=== PATIENT | female | born 1950 | race Caucasian/White ===

== ENCOUNTER 2016-06-29 16:25 | Outpatient (CLI) | payer OTHER | END 2016-06-29 16:26 | disposition EMS.NT | DX: Z04.1 Encounter for examination and observation following transport accident (principal); V49.40XA Driver injured in collision with unspecified motor vehicles in traffic accident, initial encounter; Y92.413 State road as the place of occurrence of the external cause ==

== ENCOUNTER 2016-06-29 18:35 | Outpatient (CLI) | payer OTHER | END 2016-06-29 18:36 | disposition home or self-care (01) | DX: Z01.89 Encounter for other specified special examinations (principal) ==

== ENCOUNTER 2016-08-03 11:10 | Outpatient (CLI) | payer OTHER | END 2016-08-03 11:11 | disposition short-term general hospital (02) | LOC: EMS 11:10 | PROVIDERS: ATTEND Surgery | DX: R11.2 Nausea with vomiting, unspecified (principal) | CPT/HCPCS: A0425; A0429 ==

== ENCOUNTER 2016-08-17 16:10 | Outpatient (CLI) | payer OTHER | END 2016-08-17 16:11 | disposition EMS.NT | LOC: EMS 16:10 | PROVIDERS: ATTEND Surgery | DX: Z71.1 Person with feared health complaint in whom no diagnosis is made (principal) ==

== ENCOUNTER 2016-08-18 12:22 | Outpatient (CLI) | payer OTHER | END 2016-08-18 12:23 | disposition short-term general hospital (02) | LOC: EMS 12:22 | PROVIDERS: ATTEND Surgery | DX: R52 Pain, unspecified (principal) | CPT/HCPCS: A0425; A0429 ==

== ENCOUNTER 2016-08-20 01:47 | Outpatient (CLI) | payer OTHER | END 2016-08-20 01:48 | disposition short-term general hospital (02) | LOC: EMS 01:47 | PROVIDERS: ATTEND Surgery | DX: R53.1 Weakness (principal) | CPT/HCPCS: A0425; A0429 ==

== ENCOUNTER 2019-08-20 10:44 | Emergency (ER) | payer MEDICARE, OTHER ==
--- NOTE | 2019-08-20 10:51 | ED Physician Documentation ---
PD HPI UPPER EXT INJURY - Stated complaint Stated Complaint: L WRIST PX - History obtained from History obtained from: Patient - History of Present Illness Location: Right, Left, Wrist Type of injury: Fall (tripped on hose in their garden and fell forward onto left outstretched arm. Pain at wrist.) Where injury occurred: Home Timing - onset: Today Timing - duration: Hours (1) Timing - details: Abrupt onset, Still present Improved by: No: Rest Worsened by: Moving, Palpating Associated symptoms: Weakness (for ROM of the wrist, both extension and further flexion.), Swelling. No: Numbness Contributing factors: No: Anticoagulated, Prior ortho surgery Similar symptoms before: Has not had sx before Recently seen: Not recently seen Review of Systems Constitutional: denies: Fever, Chills, Myalgias Nose: denies: Rhinorrhea / runny nose, Congestion Cardiac: denies: Chest pain / pressure Respiratory: denies: Dyspnea GI: denies: Abdominal Pain Neurologic: denies: Altered mental status, Head injury PD PAST MEDICAL HISTORY - Past Medical History Cardiovascular: Arrhythmia Respiratory: Emphysema Endocrine/Autoimmune: None GI: Ulcers : None HEENT: None Psych: Depression Musculoskeletal: None Derm: None - Past Surgical History Past Surgical History: Yes 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 HEENT: Tonsil/Adenoidectomy - Present Medications Home Medications: Ambulatory Orders Medication Instructions Recorded Confirmed Carisoprodol [Soma] 250 mg PO QID 07/17/12 11/08/13 Diazepam 10 mg PO QID 07/17/12 11/08/13 HYDROcod/ACETAM 5/325 [Vicodin 1 - 2 ea PO Q6H PRN 07/17/12 11/08/13 5/325] Mirtazapine [Remeron] 30 mg PO HS 07/17/12 11/08/13 Nadolol 40 mg PO DAILY 07/17/12 11/08/13 Triazolam [Halcion] 0.5 mg PO HS 07/17/12 11/08/13 Esomeprazole Magnesium [Nexium] 40 mg PO DAILY 08/31/12 11/08/13 Gabapentin [Neurontin] 400 mg ORAL QID 11/07/13 11/08/13 Naproxen 375 mg PO BID #20 tablet 08/20/19 Oxycodone HCl/Acetaminophen 1 each PO Q6H PRN #15 tablet 08/20/19 [Percocet 5-325 mg Tablet] - Allergies Allergies/Adverse Reactions: Allergies Allergy/AdvReac Type Severity Reaction Status Date / Time latex Allergy Mild Rash Verified 08/20/19 10:47 Penicillins Allergy Unknown Verified 08/20/19 10:48 - Social History Does the pt smoke?: No Smoking Status: Former smoker Does the pt drink ETOH?: Yes Does the pt have substance abuse?: No - Immunizations Immunizations are current?: No PD ED PE NORMAL - Vitals Vital signs reviewed: Yes - General General: Alert and oriented X 3, Well developed/nourished - HEENT HEENT: Atraumatic - Neck Neck: Supple, no meningeal sign, No bony TTP, No adenopathy - Cardiac Cardiac: RRR, No murmur - Respiratory Respiratory: Clear bilaterally - Abdomen Abdomen: Soft, Non tender - Derm Derm: Normal color, Warm and dry - Extremities Extremities: Other (left wrist with swelling and some dorsal deformity c/w colles fracture. Pain/weakness for attempting extension but also hurts. Able to extend fingers without pain. ) - Neuro Neuro: Alert and oriented X 3, No sensory deficit, Normal speech Results - Vitals Vitals: Vital Signs - 24 hr 08/20/19 08/20/19 10:48 13:31 Temperature 36.6 C Heart Rate 92 72 Respiratory 16 20 Rate Blood Pressure 165/60 H 147/56 H O2 Saturation 98 100 Oxygen O2 Source Room air - Rads (name of study) left wrist Radiology: Prelim report reviewed (distal radius fracture with some impaction and dorsal angulation about 10 degrees. Nondisplaced. ), See rad report Procedures - Splint (location) left wrist Splint applied by: Tech Type of splint: Fiberglass Other: Patient tolerated well, No complications, Neurovascular intact, Good alignment, Sling provided PD MEDICAL DECISION MAKING - ED course Complexity details: reviewed results, considered differential, d/w patient, d/w planning consultant (Ortho director surface transportation, who said to splint and he will see in office in 1-2 days. The impacted/comminuted area would be unlikely to maintain position/length without surgery, so no need for reduction attempt in ER. ) Departure - Departure Disposition: 01 Home, Self Care Clinical Impression: Fall from slip, trip, or stumble Qualifiers: Encounter type: initial encounter Qualified Code(s): W01.0XXA - Fall on same level from slipping, tripping and stumbling without subsequent striking against object, initial encounter Wrist fracture, closed Qualifiers: Encounter type: initial encounter Laterality: left Qualified Code(s): S62.102A - Fracture of unspecified carpal bone, left wrist, initial encounter for closed fracture Condition: Stable Record reviewed to determine appropriate education?: Yes Instructions: ED Fx Colles Wrist Redu Requ Follow-Up: Paul Roque MD [Provider Admit Priv/Credential] - Prescriptions: Naproxen 375 mg PO BID #20 tablet Oxycodone HCl/Acetaminophen [Percocet 5-325 mg Tablet] 1 each PO Q6H PRN #15 tablet PRN Reason: pain Comments: Keep the arm rested elevated and in the sling to reduce swelling. Ice periodically to it will help as well. Call the orthopedic office tomorrow morning to arrange a follow-up. The orthopedist would like to see you potentially tomorrow or the next day to follow-up on this and discuss treatment options. Use anti-inflammatory such as naproxen twice daily. To that add Tylenol or oxycodone as needed for pains. Discharge Date/Time: 08/20/19 13:55
[2019-08-20] MEDS ORDERED: KETOROLAC 30 MG/ML VIAL IM STA (11:13)
[2019-08-20] MEDS ORDERED: MORPHINE 10 MG/ML VIAL IM STA (11:13)
--- NOTE | 2019-08-20 12:21 | XRAY Report ---
PROCEDURE: Wrist 3 View LT INDICATIONS: fall to left arm; pain wrist and elbow TECHNIQUE: 3 views of the wrist were acquired. COMPARISON: None FINDINGS: Bones: There is a mildly impacted, angulated, and displaced fracture of the distal radius. Scaphoid view: None Soft tissues: No suspicious soft tissue calcifications. IMPRESSION: Distal radial fracture. Reviewed by: Ange Duncan MD on 08/20/2019 12:20 PM PDT Approved by: Ange Duncan MD on 08/20/2019 12:20 PM PDT Station ID: [id number]
--- NOTE | 2019-08-20 12:21 | XRAY Report ---
PROCEDURE: Elbow 3 View LT INDICATIONS: fall to left arm; pain wrist and elbow TECHNIQUE: 3 views of the elbow were acquired. COMPARISON: None FINDINGS: Bones: No fractures or dislocations. No suspicious bony lesions. Soft tissues: No elbow joint effusion. No suspicious soft tissue calcifications. IMPRESSION: No acute fracture. No osseous lesion. If symptoms and/or clinical suspicion for pathology continue, f urther assessment with repeat plain films, or advanced imaging (e.g., CT, MRI, or bone scan) is recom mended for further assessment. Reviewed by: Ange Duncan MD on 08/20/2019 12:19 PM PDT Approved by: Ange Duncan MD on 08/20/2019 12:19 PM PDT Station ID: [id number]
[2019-08-20 13:31] VITALS: BP 147/56
[2019-08-20] MEDS ORDERED: oxyCODONE 5 MG TABLET PO STA (13:49)
== END 2019-08-20 13:55 | disposition home or self-care (01) ==
LOC: ED 10:44
DX: S52.502A Unspecified fracture of the lower end of left radius, initial encounter for closed fracture (principal); W01.0XXA Fall on same level from slipping, tripping and stumbling without subsequent striking against object, initial encounter; Y92.007 Garden or yard of unspecified non-institutional (private) residence as the place of occurrence of the external cause; Z87.891 Personal history of nicotine dependence
CPT/HCPCS: 29125; 73080; 73110; 96372; 99283; 99284; A9270

== ENCOUNTER 2019-08-23 07:34 | Day surgery (SDC) | payer MEDICARE, OTHER ==
[~2019-08-23 07:34] MED LIST: ACETAMINOPHEN 1,000 MG/100 ML 100 ML IV ONE; CEFAZOLIN SODIUM IN 0.9 % NACL 2 GM/100 ML BAG IV ONE; CELECOXIB 100 MG CAPSULE PO ONE
[2019-08-23] MEDS ORDERED: PROPOFOL 200 MG/20 ML VIAL IVP ONE (07:35)
[2019-08-23] MEDS ORDERED: LIDOCAINE-MPF 2% 5 ML VIAL IM ONE (07:35)
[2019-08-23] MEDS ORDERED: MIDAZOLAM 2 MG/2 ML VIAL IVP ONE (07:35)
[2019-08-23] MEDS ORDERED: fentaNYL 100 MCG/2 ML VIAL IVP ONE (07:35)
[2019-08-23] MEDS ORDERED: LACTATED RINGERS 1,000 ML IV ONE (08:01)
--- NOTE | 2019-08-23 08:32 | ANESTHESIA ---
Pre-Anesthesia VS, & Labs - Diagnosis left distal radius fracture, displaced - Procedure closed reduction, percutaneous pinning of distal radius fracture Vital Signs: Temp Pulse Resp BP Pulse Ox 37.3 C 90 16 177/84 H 100 08/23/19 07:52 08/23/19 07:52 08/23/19 07:52 08/23/19 07:52 08/23/19 07:52 Height 4 ft 11 in Weight (kg) 46.6 kg Body Mass Index 20.9 - NPO >8 hours - Is Patient ?: No Home Medications and Allergies Allergies/Adverse Reactions: Allergies Allergy/AdvReac Type Severity Reaction Status Date / Time latex Allergy Mild Rash Verified 08/20/19 10:47 acetaminophen [From Percocet] Allergy Itching Verified 08/23/19 08:06 oxycodone [From Percocet] Allergy Itching Verified 08/23/19 08:06 Penicillins Allergy Unknown Verified 08/20/19 10:48 Anes History & Medical History - Anesthetic History Anesthesia Complications: reports: No previous complications - Medical History Cardiovascular: reports: None Pulmonary: reports: Emphysema, Other (covid in March) Gastrointestinal: reports: Ulcers, Colon polyps Urinary: reports: None Musculoskeletal: reports: None Endocrine/Autoimmune: reports: None Blood Disorders: reports: None Skin: reports: None Smoking Status: Former smoker - Surgical History General: Appendectomy Eyes Ears Nose Throat (EENT): Tonsil/Adenoidectomy Gynecologic: section Exam General: Alert Dental: WNL Mouth Opening: Greater than 4 Fingerbreadths Mallampati classification: II Thyromental Distance: greater than 6 cm Respiratory: Lungs clear Cardiovascular: Regular rate Mental/Cognitive Status: Alert/Oriented X3 Plan Anesthesia Type: Supraclavicular Block Consent for Procedure(s) Verified and Reviewed: Yes Code Status: Attempt Resuscitation ASA classification: 2-Mild systemic disease Is this case an emergency?: No
[2019-08-23] MEDS ORDERED: LIDOCAINE 1%-EPI 1:100000 20 ML MDV ONE (09:29)
[2019-08-23] MEDS ORDERED: BUPIVACAINE 0.5% PF 30 ML VIAL ONE (09:30)
--- NOTE | 2019-08-23 10:59 | OPERATIVE REPORT ---
Operative Report - General Procedure Date: 08/23/19 Planned Procedure: Close reduction left distal radius, percutaneous pinning left distal radius Pre-Op Diagnosis: Displaced fracture left distal radius Procedure Performed: Closed reduction left distal radius, percutaneous pinning left distal radius Post Op Diagnosis: Displaced fracture left distal radius - Procedure Note Primary Surgeon: edison Roque Anesthesia Provider: allie brown Anesthesia Technique: Regional block Indications: Displaced fracture left distal radius Findings: Displaced fracture left distal radius Complications: No complications - Other Other Information/Narrative: The patient was brought to the operating room and placed in the supine position. The left arm was placed on arm extension table. The patient had received a r egional block by her nurse renewals manager. The left upper extremity was prepped and draped in sterile manner in the usual fashion. A timeout procedure was performed by the entire operating room team and all were in agreement. The C- arm image intensifier was used intermittently throughout the procedure. Close reduction was performed over a bump using sterile fingertrap traction. The first K wires were inserted with a mini rickshaw driver over the bare area of the distal radius, radial aspect. 2 K wires were inserted from the styloid process to achieve bicortical fixation more proximally. An additional K wire was inserted from the dorsal aspect of the wrist on the ulnar side as well. 2 additional K wires were inserted from the ulna into the radius. The alignment of the fracture appeared to be satisfactory on all views: AP, lateral and oblique. The K wires were cut external to the skin and capped with sterile balls. A well- padded volar fiberglass splint was applied. There is no clinical deformity present. She tolerated procedure well. The blood loss was minimal since this was a percutaneous procedure.
--- NOTE | 2019-08-23 11:05 | Discharge Plan ---
Discharge Plan Problem Reviewed?: Yes Disposition: Home, Self Care Condition: Good Diet: Regular Shower Restrictions: Yes (Keep splint clean and dry left arm.) Driving Restrictions: Yes Weight Bearing: Full Weight Additional Instructions or Follow Up instructions: Keep left hand elevated as much as possible. Work on moving her fingers as much as possible. No Smoking: If you smoke, Please STOP! Call for help. Follow-up with: Paul Roque MD [Provider Admit Priv/Credential] -
--- NOTE | 2019-08-23 11:17 | XRAY Report ---
Reason: placement of k-wire Procedure Date: 08/23/2019 Accession Number: [id number] / [id number] Procedure: FL - OR C-Arm Procedure CPT Code: Final Report FULL RESULT: PROCEDURE: OR C-Arm Procedure INDICATIONS: placement of k-wire TECHNIQUE: 6 spot fluoroscopic intraoperative views. COMPARISON: None. FINDINGS: Spot fluoroscopic intraoperative images demonstrating K wire fixation of the distal radius. Reviewed by: Dipesh Ortega MD on 08/23/2019 11:16 AM PDT Approved by: Dipesh Ortega MD on 08/23/2019 11:16 AM PDT Station ID: [id number]
[2019-08-23 11:22] VITALS: BP 147/72
== END 2019-08-23 07:35 | disposition home or self-care (01) ==
LOC: SDS 07:34
PROVIDERS: ATTEND Orthopaedic Surgery
DX: S52.532A Colles' fracture of left radius, initial encounter for closed fracture (principal); J43.9 Emphysema, unspecified; Z86.19 Personal history of other infectious and parasitic diseases; Z87.891 Personal history of nicotine dependence
CPT/HCPCS: 25606; A9270; C1713; J0131; J0690; J7120

== ENCOUNTER 2019-08-28 15:05 | Outpatient (CLI) | payer MEDICARE, OTHER ==
--- NOTE | 2019-08-28 16:37 | XRAY Report ---
Reason: LEFT WRIST FRACTURE Procedure Date: 08/28/2019 Accession Number: [id number] / [id number] Procedure: WCP - Wrist 2 View LT CPT Code: Final Report FULL RESULT: PROCEDURE: Wrist 2 View LT INDICATIONS: LEFT WRIST FRACTURE TECHNIQUE: 2 views of the wrist were acquired. COMPARISON: 08/20/2019 FINDINGS: Bones: Patient is status post interval fixation of previously noted impacted distal radial fracture with multiple surgical pins in place. Alignment of left wrist has improved since previous study. No new fracture or dislocation. No gross hardware loosening or failure.. Scaphoid view: Scaphoid is grossly intact. Soft tissues: No suspicious soft tissue calcifications. IMPRESSION: Post ORIF changes in distal radius with improved wrist alignment. No new fracture or dislocation. Reviewed by: Gaston Harris MD on 08/28/2019 4:36 PM PDT Approved by: Gaston Harris MD on 08/28/2019 4:36 PM PDT Station ID: [id number]
== END 2019-08-28 23:59 | disposition home or self-care (01) ==
LOC: DI.WCP 15:05
PROVIDERS: ATTEND Orthopaedic Surgery
DX: S52.532D Colles' fracture of left radius, subsequent encounter for closed fracture with routine healing (principal)

== ENCOUNTER 2019-09-14 07:39 | Outpatient (CLI) | payer MEDICARE, OTHER ==
--- NOTE | 2019-09-14 10:28 | XRAY Report ---
PROCEDURE: Wrist 3 View LT INDICATIONS: POST OP, COLLES' FRACTURE OF LT RADIUS TECHNIQUE: 3 views of the wrist were acquired. COMPARISON: 08/28/2019, 08/23/2019, 08/20/2019 FINDINGS: Bones: External fixation pins in the left distal radius again noted. There is some bridging bony call us formation. Fracture healing is not yet complete, however. Soft tissues: No suspicious soft tissue calcifications. IMPRESSION: Post surgical changes with further progression of healing. Reviewed by: Rishi Nieto MD on 09/14/2019 10:26 AM PDT Approved by: Rishi Nieto MD on 09/14/2019 10:26 AM PDT Station ID: [id number]
== END 2019-09-14 07:40 | disposition home or self-care (01) ==
LOC: DI 07:39
PROVIDERS: ATTEND Physician Assistant
DX: Z98.890 Other specified postprocedural states (principal); S52.532A Colles' fracture of left radius, initial encounter for closed fracture